=== PATIENT | male | born 1970 | race Caucasian/White ===

== ENCOUNTER → 2017-12-19 | Outpatient (CLI) | payer BC ==
--- NOTE | 2017-12-19 14:25 | XR ---
EXAMINATION TYPE: XR chest 2V DATE OF EXAM: 12/19/2017 COMPARISON: NONE TECHNIQUE: PA and lateral views submitted. HISTORY: Shortness of breath FINDINGS: The lungs are clear and there is no pneumothorax, pleural effusion, or focal pneumonia. Arthropathy of the right AC joint. IMPRESSION: 1. No acute process.
== END | disposition home or self-care (01) ==
LOC: RADXRMAIN 14:06
PROVIDERS: ATTEND Family Medicine
DX: J44.9 Chronic obstructive pulmonary disease, unspecified (principal)
CPT/HCPCS: 71046

== ENCOUNTER → 2019-07-31 | Outpatient (CLI) | payer BC ==
--- NOTE | 2019-07-31 16:28 | CT ---
EXAMINATION TYPE: CT brain wo/w con DATE OF EXAM: 07/31/2019 COMPARISON: None. HISTORY: Slip and fall, hit head x3-4 weeks ago. Headaches and dizziness. CT DLP: 2437 mGycm. Automated Exposure Control for Dose Reduction was Utilized. TECHNIQUE: CT scan of the head is performed without and with IV Contrast, patient injected with 100 ml mL of Isovue 300. FINDINGS: Noncontrast images show no acute intracranial hemorrhage or midline shift. The ventricles and sulci are within normal limits in size. Postcontrast images show no suspicious enhancing intrapa renchymal mass. The globes are intact and the visualized sinuses are clear. IMPRESSION: Unremarkable study.
== END | disposition home or self-care (01) ==
LOC: RADCTMAIN 15:07
PROVIDERS: ATTEND Family Medicine
DX: S09.90XA Unspecified injury of head, initial encounter (principal)
CPT/HCPCS: 70470; Q9967

== ENCOUNTER → 2019-08-26 | Outpatient (CLI) | payer BC ==
[2019-08-26 10:18] VITALS: BMI 24.6
== END | disposition home or self-care (01) ==
LOC: DBWHC3 08:59
PROVIDERS: ATTEND Family Medicine
DX: E78.5 Hyperlipidemia, unspecified (principal)
CPT/HCPCS: 97802